=== PATIENT | female | born 1985 | race Caucasian/White ===

== ENCOUNTER 2018-08-07 08:12 | Day surgery (SDC) | payer SELFPAY ==
--- NOTE | 2018-07-29 14:27 | PCM.HP.BLA ---
History and Physical Date of Admission: 08/07/18 Pre-Op History and Physical ? HPI: The patient is a 33 year old female presenting for pre-operative visit. She is scheduled for?Hysteroscopy D&C w/ polypectomy, for?AUB on?08/07/18. ??Procedure discussed along with risks, benefits and complications. ?Other alternatives discussed for management. Consent form signed??Yes.? PAST?MEDICAL?HISTORY PAST MEDICAL HISTORY Diagnosis Date ? Anemia ? ? Mild depression 10/01/2012 ? Varicosities ? ? RIGHT LEG ? ? PAST?SURGICAL?HISTORY PAST SURGICAL HISTORY Procedure Laterality Date ? DELIVERY ONLY ? 09/10/2016 ? D&C, DIAG AND/OR THERAPEUTIC ? 07/17/2011 ? Dilation & curettage ? PCHG TUBAL W/ Bilateral 09/10/2016 ? ? CURRENT?MEDICATIONS ? Current Outpatient Medications: FERROUS SULFATE (IRON ORAL) Take ?by mouth. Disp: Rfl: PNV95/IRON FUM/FOLIC ACID ( ORAL) Take ?by mouth. Disp: Rfl: CALCIUM CARBONATE/VITAMIN D3 (VITAMIN D-3 ORAL) Take ?by mouth. Disp: Rfl: ? No current facility-administered medications for this visit.? ? ALLERGIES:?Patient has no known allergies. ? PERSONAL HISTORY:? SOCIAL?HISTORY Social History ??Socioeconomic History ?Marital status: ?Spouse name: BHAVESH ?Number of children: 6 ?Years of education: 8 ?Highest education level: Not on file ??Social Needs ?Financial resource strain: Not on file ?Food insecurity - worry: Not on file ?Food insecurity - inability: Not on file ?Transportation needs - medical: Not on file ?Transportation needs - non-medical: Not on file ??Occupational History ?Occupation: homemaker ??Tobacco Use ?Smoking status: Never Smoker ?Smokeless tobacco: Never Used ??Substance and Sexual Activity ?Alcohol use: No ?Drug use: No ?Sexual activity: Yes ?Partners: Male ? control/protection: Tubal Ligation ??Other Topics ?Concerns: ?Not on file ??Social History Narrative ?Not on file ? FAMILY HISTORY:? FAMILY?HISTORY FAMILY HISTORY Problem Relation Age of Onset ? other (liver cancer) Maternal Grandmother ? ? Heart Maternal Grandfather ? ? Aneurysm Paternal Grandfather ? ? Cancer Maternal Uncle ?x2 ? REVIEW OF SYMPTOMS: GENERAL: denies fevers or chills ENDOCRINOLOGY: has not been on steroids Cardiology : denies palpitations or chest pain Respiratory: denies SOB or cough Hematology: denies history of prolonged bleeding or easy bruising or VTE Allergy: Denies history of personal or family history of allergy to anesthesia ? ? PHYSICAL EXAMINATION: ? VITALS:?Blood pressure 114/68, pulse 76, resp. rate 16, height 5' 4 (1.626 m), weight 153 lb (69.4 kg), last menstrual period 07/19/2018, not currently . ? GENERAL:??The patient is well nourished, well hydrated in no acute distress. ?, The patient is oriented to time, place, and person. NECK:?Supple. No lynphadenopathy, normal thyroid, no thyromegaly. LUNGS:?Clear to auscultation bilaterally. no wheezes, rhonchi or rales HEART:?Regular rate and rhythm, Normal heart sounds and No murmurs or gallops ? PELVIC US 07/07/18: Report Summary: Overall impression: uterus top normal size, endometrial thickness of 11.6mm. There ?is a well defined endometrial polyp located at fundal aspect. Scant amount of free fluid in CDS Right and left ovaries appear normal. Recommendations / therapy: Recommend hysteroscopic removal of Polyp if symptomatic ?bleeding. Follow- up: F/u as clinically indicated. Indication: Abnormal Uterine Bleeding. Pelvic pain. History: Last menstrual period: 06/28/2018. 10th day of cycle. Gynecological Ultrasonography: Uterus: normal, anteverted. Size: Longitudinal 106 mm. Anterio- posterior 59 mm. Transverse 66 mm. Volume: 216.1 ml. Endometrium: endometrium clearly visualized. Endometrium thickness total: 11.6 mm. Endometrial polyps: 13 mm x 10 mm x 17 mm. Fundal. Right Ovary: normal. Visible. Morphology: normal morphology. Right Ovary size: 30 mm x 18 mm x 18 mm. Volume: 5.1 ml. Left Ovary: normal. Visible. Morphology: normal morphology. Left Ovary size: 28 mm x 26 mm x 21 mm. Volume: 8.0 ml. Cul de Sac / Pouch of Fady: minimal amount of free fluid.? ? ? IMPRESSION:?AUB, endometrial polyp ? PLAN:???The risks/benefits/alternatives and personal involved for the planned?hysteroscopy D&C with polypectomy?were reviewed with the patient. Her questions were answered to her satisfaction and she desires to proceed. ?Consent was signed. ?I reviewed with her postop instructions and expectations. ? ? I have reviewed and updated past medical and surgical history, medications and allergies?This H&P performed in my office 07/29/18 Lynda Beaulieu M.D.
[2018-08-07] VITALS (9 sets, daily range): BP systolic 81–110; BP diastolic 45–75; PULSE 50–66; RESP 16–18; TEMP 36.3–36.6; O2SAT 97–100; BMI 26.0
[2018-08-07 08:35] LABS: Internal QC Validated? YES +Cl - CLEAR BKGD
[2018-08-07 08:36] LABS: Pregnancy, Urine Negative Negative
--- NOTE | 2018-08-07 09:45 | EMB_PTH ---
PATIENT: KEILA WILCOX [place] [facility] [place][id number] AGE/SX: 33/F ROOM: RE08/07/[address]: Dr. Lynda Beaulieu MD : [id number] BED: DIS: 08/07/2018 SPEC #: [id number] RECD: 08/07/18 10:43 STATUS: IAN ED #: [id number] MIGUELITO: 08/07/18 09:[address]: Lynda Beaulieu DEPT: SURGICAL PATHOLOGY RECD BY: Fabien Tan ENTERED: 08/07/18 11:15 SP TYPE: ENDOM BX/C OT DR: No Primary Care Phys Tissues: Endometrium, NOS Procedures: Surgery Specimen Level IV HEADER OPERATION: Hysteroscopy, D & C, polypectomy, Symphion PRE-OP DIAGNOSIS: Abnormal uterine bleeding, endometrial polyp TISSUE SUBMITTED: Endometrial curettings MICROSCOPIC DIAGNOSIS Endometrial curettings: Secretory endometrium. A few fragments of myometrium. SJ:leo 08/08/18 MICROSCOPIC DESCRIPTION Slides are reviewed. GROSS DESCRIPTION Received in fixative is one container labeled with the patient's name and designated endometrial curettings. The specimen consists of multiple irregular fragments of fisher-pink soft tissue that in aggregate measure 5 x 3 x 0.3 cm. The entire specimen is submitted in two cassettes. / SJ:leo 08/07/18 TC:4 CPT: 00995
--- NOTE | 2018-08-07 10:14 | DCINST_ITS ---
Discharge Diet: No Restrictions Discharge Activity: Return to Normal Activity, May Shower, May Take a Tub Bath - in 1 week. May resume sexual activity in: 1 week Call your doctor if your incision/area has: Continuous Slow Oozing, Sudden Increased Bleeding, Foul Smelling Discharge Call your doctor if you observe: Fever of 101 or Higher, Using more than one pad per hour - FOR 2 HRS IN A ROW Allergies/Adverse Reactions: Allergies No Known Allergies Allergy (Verified 08/07/18 08:40) Medications to take at Discharge NK 08/05/18 Primary Care Physician: Care Physician,No Primary [Primary Care Provider] - Test Results: Test results from this visit will be discussed in further detail at your follow- up appointment, if applicable. Please Follow Up With: Lynda Beaulieu MD - [phone] When: As needed. You do not have to have a postop appointment if doing well
--- NOTE | 2018-08-07 10:23 | PCM.OPRPT ---
Report of Operation Date of Procedure: 08/07/18 Pre-Operative Diagnosis: Abnormal uterine bleeding, thickened endometrium on pelvic ultrasound Post-Operative Diagnosis: Same Surgery/Procedure Performed:: Hysteroscopy visual dilation and curettage and polyp resection with Symphion device Description of Surgical Findings:: Normal-appearing cervix and vagina, endometrial cavity which with what appeared to be a fundal polyp on the anterior uterine wall. There also appeared to be a small fibroid in the midline on the anterior wall that was resected abstract manager: None Type of Anesthesia:: MAC/Supplemental/Local Anesthesiologist: Hannah Taveras Special Medications: None Specimen's removed: Endometrial curettings Drains: None Estimated Blood Loss (mL): 20 Description of Procedure: The patient was taken to the OR where she was prepped and draped in dorsal lithotomy position. The weighted speculum was placed in the vagina and the anterior lip of the cervix was grasped with a single-tooth tenaculum. A paracervical block was administered with 1% lidocaine with 1-100,000 epinephrine solution. The cervix was dilated serially with Hegar dilators. The 3 mm hysteroscope was placed into the uterine cavity and the above findings were noted. Bilateral tubal ostia were identified. The hysteroscope was removed. The Symphion device was readied and inserted. The device was used to resect the polyp and then the other midline lesion that appeared to be more fibroid. The fibroid seem to be resected completely and was relatively small. I then did a visual D&C of the remainder the endometrial cavity. The instruments were removed from the vagina. The specimen was handed off and sent to pathology. All sponge and needle counts were correct. Vaginal sweep was performed by me. The patient was awakened and taken to the recovery room in stable condition. Hysteroscopic fluid deficit was 600 cc of normal saline Grafts/Implants Used: None - Complications None - Admit VTE Documentation VTE Present on Admission: No VTE Mechan Device Prophylaxis: SCD's VTE Pharm Prophylaxis ordered?: No Reason prophylaxis not ordered:: Procedure Not Indicated
--- NOTE | 2018-08-07 10:27 | OP.PCM_ITS ---
Report of Operation Date of Procedure: 08/07/18 Pre-Operative Diagnosis: Abnormal uterine bleeding, thickened endometrium on pelvic ultrasound Post-Operative Diagnosis: Same Surgery/Procedure Performed:: Hysteroscopy visual dilation and curettage and polyp resection with Symphion device Description of Surgical Findings:: Normal-appearing cervix and vagina, endometrial cavity which with what appeared to be a fundal polyp on the anterior uterine wall. There also appeared to be a small fibroid in the midline on the anterior wall that was resected store management trainee: None Type of Anesthesia:: MAC/Supplemental/Local Anesthesiologist: Hannah Taveras Special Medications: None Specimen's removed: Endometrial curettings Drains: None Estimated Blood Loss (mL): 20 Description of Procedure: The patient was taken to the OR where she was prepped and draped in dorsal lithotomy position. The weighted speculum was placed in the vagina and the anterior lip of the cervix was grasped with a single-tooth tenaculum. A paracervical block was administered with 1% lidocaine with 1-100,000 epinephrine solution. The cervix was dilated serially with Hegar dilators. The 3 mm hysteroscope was placed into the uterine cavity and the above findings were note d. Bilateral tubal ostia were identified. The hysteroscope was removed. The Symphion device was readied and inserted. The device was used to resect the polyp and then the other midline lesion that appeared to be more fibroid. The fibroid seem to be resected completely and was relatively small. I then did a visual D&C of the remainder the endometrial cavity. The instruments were removed from the vagina. The specimen was handed off and sent to pathology. All sponge and needle counts were correct. Vaginal sweep was performed by me. The patient was awakened and taken to the recovery room in stable condition. Hysteroscopic fluid deficit was 600 cc of normal saline Grafts/Implants Used: None - Complications None - Admit VTE Documentation VTE Present on Admission: No VTE Mechan Device Prophylaxis: SCD's VTE Pharm Prophylaxis ordered?: No Reason prophylaxis not ordered:: Procedure Not Indicated
== END 2018-08-07 11:30 | disposition home or self-care (01) ==
LOC: SDC 08:15 → AC 08:16
PROVIDERS: Referring Provider Obstetrics & Gynecology; Visit Provider Obstetrics & Gynecology
PROC: 0UB98ZZ Excision of Uterus, Via Natural or Artificial Opening Endoscopic (ICD-10-PCS; CPT 58558; principal; 2018-08-07 09:30)
DX: N84.0 Polyp of corpus uteri (principal); R93.89 Abnormal findings on diagnostic imaging of other specified body structures; N93.9 Abnormal uterine and vaginal bleeding, unspecified; D64.9 Anemia, unspecified; Z79.899 Other long term (current) drug therapy
CPT/HCPCS: 00952; 58558; 81025; 88305; J7120; J2405